=== PATIENT | female | born 1995 | race African-American/Black ===

== ENCOUNTER 2017-04-13 14:11 | Emergency (ER) | payer OTHER ==
[2017-04-13 16:18] LABS: CALCIUM 8.5 mg/dL (8.5-10.1); CARBON DIOXIDE 23.4 mmol/L (21-32); CHLORIDE SERUM 108 mmol/L (98-107); CREATININE SERUM 0.9 mg/dL (0.6-1.0); GFR1 > 60 mL/min; GLUCOSE SERUM 79 mg/dL (74-106); POTASSIUM SERUM 4.2 mmol/L (3.5-5.1); SODIUM SERUM 142 mmol/L (136-145)
[2017-04-13 16:24] LABS: ALBUMIN 3.8 g/dL (3.4-5.0); ALKALINE PHOSPHATASE 50 U/L (46-116); ALT/SGPT 14 U/L (14-59); AST/SGOT 17 U/L (15-37); BILIRUBIN TOTAL 0.24 mg/dL (0.20-1.00); LIPASE 390 IU/L (73-393); TOTAL PROTEIN, SERUM 8.2 g/dL (6.4-8.2)
[2017-04-13 16:26] LABS: AMYLASE 216 U/L (25-115)
[2017-04-13 16:30] LABS: PLATELET COUNT 310 x10^3mcL (130-400)
[2017-04-13 16:33] LABS: MONOCYTE 7 % (0-7); SEGMENTED NEUTROPHILS 64 % (37-75); rbc morphology (normal/abnorm) ABNORMAL (NORMAL)
[2017-04-13 16:34] LABS: target cell (codocyte) 1+
[2017-04-13 17:11] LABS: AMPHETAMINE QUAL UR NONE DETECTED (NEG <=1000)
[2017-04-13 17:18] VITALS: BP 112/81
== END 2017-04-13 18:07 | disposition home or self-care (01) ==
LOC: ED 14:11
PROVIDERS: Emergency Medicine
DX: K29.00 Acute gastritis without bleeding (principal); D50.9 Iron deficiency anemia, unspecified; Z87.19 Personal history of other diseases of the digestive system
CPT/HCPCS: 83880; J2405; J3490; J7030

== ENCOUNTER 2017-06-20 14:34 | Emergency (ER) | payer OTHER ==
[~2017-06-20] VITALS: Ht 162.6 cm; Wt 51.2 kg
[2017-06-20 16:54] VITALS: BP 94/67
== END 2017-06-20 16:54 | disposition home or self-care (01) ==
LOC: ED 14:34
DX: J06.9 Acute upper respiratory infection, unspecified (principal)